=== PATIENT | male | born 1950 | race Caucasian/White ===

== ENCOUNTER 2019-03-08 05:30 | Inpatient (IN) ==
--- NOTE | 2019-02-10 08:45 | History & Physical Report ---
Date of Service February 10, 2019 date of surgery: 03-08-19 Assessment & Plan (1) Tricompartment osteoarthritis of right knee: Risks and benefits of procedure discussed in detail today, patient would like to proceed with a Right total knee replacement at [facility] as scheduled. will obtain medical clearance from Dr Braun prior to surgery as well as cardiac clearance from Dr Kirby, as well as obtain PATs at [facility]. Will resume his Xarelto post op, f/u 2 weeks post op for routine post- operative care and x-ray, sooner if having any problems. will make arrangements for HHPT at the time of discharge. At this point in time, has failed conservative measures and would like to proceed with surgical intervention. History of Present Illness Chief Complaint: right knee pain Primary Care Provider: Rohan Kirby MD Mr Gongora is a 68 year old male who complains of Right knee pain, presents for pre-op eval prior to a right total knee replacement at [facility], He complains of pain, crepitus, decreased motion in his right knee. He states that the symptoms have been chronic non-traumatic. his pain has gradually worsened over the years. Currently the patient states that the symptoms are moderate and is described as aching, sharp and throbbing. The symptoms occur with activity and are aggravated by ascending stairs, daily activities, exercise, walking and repetitive activities. Levon states that the symptoms are relieved by no specific activity. In addition to knee pain, he is also experiencing crepitus, decreased mobility, joint pain, limping, loss of motion, pain after activity and stiffness. Prior NSAIDs include Advil and Ibuprofen. Prior pain medications include Tylenol. Pt. is on Xarelto for A-Fib which limits his current NSAID use. He has had previous PT, has a knee brace he wears as needed. Pt. reports having Right knee surgery by Dr. Mckeon in [place] in 1974 but he is unsure of the exact procedure. Allergies Allergy/AdvReac Type Severity Reaction Status Date / Time adhesive tape Allergy Unknown REDNESS Verified 02/01/19 10:58 codeine Allergy Unknown THROAT Verified 02/01/19 10:58 TIGHTNESS cyclobenzaprine Allergy Unknown PT CAN'T Verified 02/01/19 10:58 [From Flexeril] REMEMBER gatifloxacin [From Tequin] Allergy Unknown ITCHINESS Verified 02/01/19 10:58 Home Medications Home Medications Medication Instructions Recorded Confirmed Type B-complex with vitamin C [Super B 1 tab PO DAILY 02/01/19 02/01/19 History Complex-Vitamin C] amlodipine 2.5 mg PO HS 02/01/19 02/01/19 History ascorbic acid (vitamin C) [Vitamin 500 mg PO DAILY 02/01/19 02/01/19 History C] benzonatate 100 mg PO UD PRN 02/01/19 02/01/19 History cholecalciferol (vitamin D3) 5,000 unit PO DAILY 02/01/19 02/01/19 History [Vitamin D3] irbesartan-hydrochlorothiazide 2 tab PO QAM 02/01/19 02/01/19 History loratadine 10 mg PO DAILY 02/01/19 02/01/19 History pantoprazole 40 mg PO QAM 02/01/19 02/01/19 History polyethylene glycol 3350 [Miralax] 17 g PO DAILY 02/01/19 02/01/19 History potassium 45 mg PO QPM 02/01/19 02/01/19 History rivaroxaban [Xarelto] 20 mg PO QPM 02/01/19 02/01/19 History terazosin 5 mg PO BID 02/01/19 02/01/19 History Past Med/Surg History Medical History Afib DX spring, NO CARDIOVERSION Bulging disc NECK - DENIES LIMITED ROM Chest tightness ONGOING SYMPTOMS: TINGLING SENSATION, CHEST TIGHTNESS - L SIDE - CARDIO AWARE PT REPORTS BELIEVES THESE SYMPTOMS MUSCLE RELATED Diverticulosis Fibromyalgia High blood pressure History of basal cell carcinoma & REMOVED History of constipation Osteoarthritis Polymyalgia rheumatica HX OF Sleep apnea BIPAP Surgical History History of appendectomy History of back surgery X2, LOWER BACK - "CLEANED OUT" History of cardiac cath X2 2010 - HIGH BLOOD PRESSURE, WOULDN'T COME DOWN...DR LAUREN GOMEZ, NO FINDINGS 2014 - TX FOR HIGH BLOOD PRESSURE, IRREGULAR EKG...[facility], NO FINDINGS History of cardiac radiofrequency ablation FOR AFIB, SEPTEMBER 25, 2018 [facility] History of carpal tunnel surgery of left wrist History of carpal tunnel surgery of right wrist History of cholecystectomy History of colonoscopy History of foot surgery L/PLANTAR FASCIATIS History of hernia repair R History of hernia surgery L History of right knee surgery History of shoulder surgery R History of surgery on right wrist History of temporal artery biopsy History of tonsillectomy Status post myelogram HX OF MYELOGRAM,1987 Family History Brother Family history of colon cancer Brother Family history of diabetes mellitus Mother Family history of Alzheimer's disease Other Family history of heart disease Social History Preferred Language: Estonian Communication Ability: Effective Blogs Manager Required: No Beliefs That Will Affect Care: Orthodoxy Orthodoxy Beliefs: ROMAN CATHOLIC Current Living Situation: Spouse and Other Current Living Situation Comment: [facility] Other Information That Helps Us Care for You: No Feels Safe at Home: Yes Smoking Status: Never smoker Do You Dip or Chew Tobacco: No ; Hx Alcohol Use: Yes Alcohol type: beer Hx Substance Use: No Review of Systems Review of Systems: All systems reviewed & are unremarkable except as noted in HPI & below Constitutional: no fever, no chills and no sweats Respiratory: no cough and no dyspnea Cardiovascular: no chest pain, no dyspnea and no orthopnea Gastrointestinal: no abdominal pain, no nausea and no vomiting Musculoskeletal: as per Subjective / HPI Physical Exam Physical Exam: Ht: 5ft 9in Wt: 104kg BP: 128/72 Constitutional: WD/WN, vitals as above no acute distress Respiratory: normal respiratory effort, lungs clear to auscultation no respiratory distress, no labored breathing and does not use accessory muscles Cardiovascular: RRR, no murmur, no edema Gastrointestinal (Abdomen): normal bowel sounds, soft, nontender, no hepatosplenomegaly Musculoskeletal: Knee: + knee abnormal to inspection (RIGHT KNEE), + effusion (+1 effusion), + surgical incision (well healed portals), + limited ROM of knee (ROM 0/3/110), + knee ROM with crepitation, + joint line tenderness (medial joint line) and + Minor's sign positive; no deformity, no skin erythema, no ecchymosis, no valgus laxity, no varus laxity, anterior drawer test negative, Radhames's sign negative and pivot shift test negative Results & Data Diagnostic Findings Right Knee X-ray reviewed from 12-27-18 showing advanced degenerative changes to the right knee, narrowing of the medial compartment with complete loss of joint space, patello-femoral joint with patellar spurring noted, findings showing joint space narrowing of the medial compartment and patello-femoral joint, osteophyte formation and subchondral sclerosis noted. overall varus alignment. no acute bony pathology noted.
--- NOTE | 2019-02-10 13:09 | Anesthesiology Consultation ---
Date of Service February 10, 2019 Assessment & Plan (1) Encounter for pre-operative examination: - Awaiting review preop testing (labs, EKG, CXR). - Awaiting surgeon ordered cardiology/electrophysiology preop evaluation (Dr. Rohan Donis; [facility]). - Xarelto instructions: patient made aware that in order for spinal anesthesia, Xarelto needs to be held 72 hours/3 days prior to surgery. Patient voiced understanding/will check if okay with prescriber. Chart Review Chart Review: Patient seen in Pre Admission Testing Teaching & Discussion Pre-Anesthesia Teaching/Discussion Notes: Instructed NPO after midnight before surgery,except medications with 15 cc of water. Medication instructions provide d according to the PAT guidelines. History Surgery Operation Date: 03/08/19 08:20 Proposed Procedures p Right Total Knee Arthroplasty - Ketan Hood DO Height/Weight Height: 5 ft 9 in Weight: 105.2 kg Allergies Allergy/AdvReac Type Severity Reaction Status Date / Time adhesive tape Allergy Unknown REDNESS Verified 02/01/19 10:58 codeine Allergy Unknown THROAT Verified 02/01/19 10:58 TIGHTNESS cyclobenzaprine Allergy Unknown UNKNOWN Verified 02/10/19 13:15 [From Flexeril] REACTION gatifloxacin [From Tequin] Allergy Unknown PRURITUS Verified 02/10/19 13:15 Medications Home Medications Medication Instructions Recorded Confirmed Last Taken B-complex with vitamin C [Super B 1 tab PO DAILY 02/01/19 02/01/19 Unknown Complex-Vitamin C] amlodipine 2.5 mg PO HS 02/01/19 02/01/19 Unknown ascorbic acid (vitamin C) [Vitamin 500 mg PO DAILY 02/01/19 02/01/19 Unknown C] benzonatate 100 mg PO UD PRN 02/01/19 02/01/19 Unknown cholecalciferol (vitamin D3) 5,000 unit PO DAILY 02/01/19 02/01/19 Unknown [Vitamin D3] irbesartan-hydrochlorothiazide 2 tab PO QAM 02/01/19 02/01/19 Unknown loratadine 10 mg PO DAILY 02/01/19 02/01/19 Unknown pantoprazole 40 mg PO QAM 02/01/19 02/01/19 Unknown polyethylene glycol 3350 [Miralax] 17 g PO DAILY 02/01/19 02/01/19 Unknown potassium 45 mg PO QPM 02/01/19 02/01/19 Unknown rivaroxaban [Xarelto] 20 mg PO QPM 02/01/19 02/01/19 Unknown terazosin 5 mg PO BID 02/01/19 02/01/19 Unknown Past Medical History Medical History Afib Bulging disc cervical CAD (coronary artery disease) non-obstructive Diverticulosis Fibromyalgia High blood pressure History of basal cell carcinoma s/p excision LBBB (left bundle branch block) hx bradycardia with incomplete LBBB raising concern for SSS (per cardiology records- patient subsequently saw electrophysiology; awaiting office visit note) Obesity Osteoarthritis Polymyalgia rheumatica Sleep apnea BIPAP Exercise / Class Metabolic Activity II 4-5 Yardwork/Stairs/Walk up hill Past Family History Family History Brother Family history of colon cancer Brother Family history of diabetes mellitus Mother Family history of Alzheimer's disease Other Family history of heart disease Past Surgical History Surgical History History of appendectomy History of back surgery LUMBAR X2 History of cardiac cath 2010, 2014= NO STENTS History of cardiac radiofrequency ablation for a. fib (08/2018) History of carpal tunnel surgery of left wrist History of carpal tunnel surgery of right wrist History of cholecystectomy History of colonoscopy History of foot surgery LEFT/PLANTAR FASCIATIS History of hernia repair R History of hernia surgery LEFT History of right knee surgery History of shoulder surgery RIGHT History of surgery on right wrist History of temporal artery biopsy History of tonsillectomy Past Anesthesia History No Hx of Anesthesia Complications and No Family Hx of Anesthesia Complications History of PONV No Hx of PONV and No Hx of Motion Sickness Social History Smoking Status: Never smoker Do You Dip or Chew Tobacco: No Hx Alcohol Use: Yes Alcohol type: beer alcohol intake frequency: a few times a week (at most) Hx Substance Use: No substance use type: does not use Review of Systems Non-productive cough s/p antibiotics/prednisone (now on z-evaristo). Patient denies chest pain, shortness of breath, dyspnea on exertion, reflux, cough, wheezing, palpitations. Physical Exam Vital Signs VITALS BP 145/76 P 59 TEMP 98.1 SP02 95%RA RESP 20 PHYSICAL Full neck and c-spine range of motion. Full TMJ range of motion. TMD 3 finger breaths Mallampati Score 3 Dentition: intact, upper front ?implants vs. crowns Lungs: clear throughout to auscultation Cardiac: regular rate and rhythm, no murmurs noted Spine: normal Carotid arteries: negative bruit Extremities: no edema Testing Echocardiogram Date: 09/12/18 LVEF 55-74%. Mild LAD. No RWMA. Grade I DD. No significant valvular disease.
--- NOTE | 2019-02-10 13:26 | PAT Medication Instructions ---
Medication Instructions Date of Service February 10, 2019 Home Medications B-complex with vitamin C [Super B Complex-Vitamin C] 1 tab PO DAILY amlodipine 2.5 mg PO HS ascorbic acid (vitamin C) [Vitamin C] 500 mg PO DAILY benzonatate 100 mg PO UD PRN cholecalciferol (vitamin D3) [Vitamin D3] 5,000 unit PO DAILY irbesartan-hydrochlorothiazide 2 tab PO QAM loratadine 10 mg PO DAILY pantoprazole 40 mg PO QAM polyethylene glycol 3350 [Miralax] 17 g PO DAILY potassium 45 mg PO QPM rivaroxaban [Xarelto] 20 mg PO QPM terazosin 5 mg PO BID ASK your prescriber and surgeon rivaroxaban [Xarelto] 20 mg PO QPM (In order for spinal anesthesia, Xarelto/Rivaroxaban needs to be stopped 72 hours/3 days prior to surgery. Please check with prescribing doctor if this is okay) DO NOT take the morning of surgery B-complex with vitamin C [Super B Complex-Vitamin C] 1 tab PO DAILY ascorbic acid (vitamin C) [Vitamin C] 500 mg PO DAILY benzonatate 100 mg PO UD PRN cholecalciferol (vitamin D3) [Vitamin D3] 5,000 unit PO DAILY irbesartan-hydrochlorothiazide 2 tab PO QAM loratadine 10 mg PO DAILY polyethylene glycol 3350 [Miralax] 17 g PO DAILY Take morning of surgery With a small sip of water, OTHERWISE NOTHING TO EAT OR DRINK AFTER MIDNIGHT: pantoprazole 40 mg PO QAM terazosin 5 mg PO BID Take evening before surgery amlodipine 2.5 mg PO HS benzonatate 100 mg PO UD PRN (if needed) potassium 45 mg PO QPM terazosin 5 mg PO BID Other Notes If you have any questions please call us at [phone] or [phone] or [phone] or [phone]
--- NOTE | 2019-02-10 14:00 | XRay Report ---
TWO VIEW CHEST CLINICAL HISTORY: Preoperative examination. FINDINGS: PA and lateral chest radiographs are obtained. No prior studies are available for compariso n at the time of dictation. The heart is top normal for projection noting atherosclerotic calcifica tion of the thoracic aorta. The lungs and pleural spaces are clear. There is no pneumothorax. The sk eletal structures are osteopenic. Degenerative change is noted in the thoracic spine. The bony thorax appears intact. Surgical clips are seen in the upper abdomen. IMPRESSION: No active disease in the chest. Electronically signed by: Yves Tucker M.D. 02/10/2019 1:58 PM
[2019-02-10 14:17] LABS: INR 1.1 (0.9-1.1); Partial Thromboplastin Ratio 1.1; Partial Thromboplastin Time 29.6 Seconds (21.0-31.0); Prothrombin Time 10.9 Seconds (9.0-12.0)
[2019-02-10 14:32] LABS: Albumin Level 3.9 gm/dl (3.4-5.0); BUN Creatinine Ratio 18.4 (10-20); Calcium 9.6 mg/dl (8.5-10.1); Creatinine Clr Calc Pharmacy 87.7 ml/min; Est GFR (African American) 94.3; Est GFR (Non-African American) 81.3; Potassium 3.9 mmol/L (3.5-5.1)
[2019-02-10 14:38] LABS: Appearance Urine Clear (Clear); Bilirubin Urine Negative (Negative); Blood Urine Negative (Negative); Color Urine Yellow; Glucose Urine UA Negative (Negative); Ketones Urine Negative (Negative); Leukocyte Esterase Urine Negative (Negative); Nitrite Urine Negative (Negative); Protein Urine Negative (Negative); Specific Gravity Urine 1.012 (1.000-1.030); Urobilinogen Urine Negative (Negative); pH Urine 6.5 (4.5-7.5)
[2019-02-10 14:58] LABS: Basophils # (auto) 0.03 K/uL (0-0.2); Basophils % (auto) 0.4 %; Eosinophils # (auto) 0.21 K/uL (0-0.5); Eosinophils % (auto) 2.5 %; Hematocrit (blood only) 43.7 % (42-52); Hemoglobin 15.5 g/dL (14.0-18.0); Immature Granulocytes # (auto) 0.04 K/uL (0.00-0.02); Immature Granulocytes % (auto) 0.5 %; Lymphocytes # (auto) 1.86 K/uL (1.2-3.4); Lymphocytes % (auto) 22.6 %; Mean Corpuscular Hemoglobin 31.8 pg (25-34); Mean Corpuscular Hgb Conc 35.5 g/dL (32-36); Mean Corpuscular Volume 89.5 fL (80-100); Mean Platelet Volume 10.2 fL (7.4-10.4); Monocytes # (auto) 0.85 K/uL (0.11-0.59); Monocytes % (auto) 10.3 %; Neutrophils # (auto) 5.25 K/uL (1.4-6.5); Neutrophils % (auto) 63.7 %; Platelet Count 231 K/uL (130-400); RDW Coefficient of Variation 13.3 % (11.5-14.5); RDW Standard Deviation 43.2 fL (36.4-46.3); Red Blood Count 4.88 M/uL (4.7-6.1); White Blood Count 8.24 K/uL (4.8-10.8)
[2019-02-11 05:55] LABS: Estimated Average Glucose 123 mg/dl; Hemoglobin A1C 5.9 % (4.5-5.6)
[2019-03-08] MEDS ORDERED: LR 500ML BOLUS, THEN 15ML/HR IV SCH (06:00)
[2019-03-08] MEDS ORDERED: FAMOTIDINE 20 MG TAB PO SCH (06:00)
[2019-03-08] MEDS ORDERED: ROPIVACAINE 0.5% HCL/PF 150 MG, BUPIVACAINE 0.5% MPF 30 ML, EPINEPHrine 30MG/30ML (OR U... INSTIL SCH (06:00)
[2019-03-08] MEDS ORDERED: ACETAMINOPHEN 500 MG TAB PO SCH (06:00)
[2019-03-08] MEDS ORDERED: GABAPENTIN 300 MG CAP PO SCH (06:00)
[2019-03-08] MEDS ORDERED: TRANEXAMIC ACID 1,000 MG **IV Pre-op IV SCH (06:00)
[2019-03-08] MEDS ORDERED: CEFAZOLIN 2000MG 2,000 MG/15 ML SYR IV SCH (06:00)
[2019-03-08] MEDS ORDERED: dexAMETHasone 4 MG TAB PO SCH (06:00)
[2019-03-08] MEDS ORDERED: CeleBREX 200 MG CAP PO SCH (06:00)
[2019-03-08] MEDS ORDERED: METOCLOPRAMIDE HCL 10 MG TABLET PO SCH (06:00)
[2019-03-08] MEDS ORDERED: ROPIVACAINE 0.5% 5 MG/ML 30 ML VIAL ONE (06:25)
[2019-03-08] MEDS ORDERED: BUPIVACAINE 0.5 % 5 MG/1 ML PF 10ML VIAL ONE (06:25)
[2019-03-08] MEDS ORDERED: TRANEXAMIC ACID 1,000 MG **IV Intra-op IV SCH (06:30)
[2019-03-08] MEDS ORDERED: PROPOFOL IV EMULSION 10 MG/ML 20 ML VIAL IV ONE (06:56)
[2019-03-08] MEDS ORDERED: MIDAZOLAM HCL 1 MG/ML 2ML VIAL ONE ×2 (06:56)
[2019-03-08] MEDS ORDERED: LIDOCAINE HCL 2% 2 ML VIAL/AMP(20MG/ML) INFIL ONE (06:56)
[2019-03-08] MEDS ORDERED: fentaNYL citrate 100 MCG/2 ML VIAL ONE (06:56)
--- NOTE | 2019-03-08 07:14 | History & Physical Bridge Note ---
Date of Service March 08, 2019 History & Physical Bridge Note I have examined the patient, reviewed the History & Physical and in the interval since the performance of the History & Physical I have noted the following changes of clinical significance: no changes noted
[2019-03-08] MEDS ORDERED: ORTHO JOINT ANESTHETIC ONE (07:20)
[2019-03-08] MEDS ORDERED: BACITRACIN INJ 50,000 UNIT VIAL ONE (07:20)
--- NOTE | 2019-03-08 09:38 | Operative Report ---
Post Operative Report Pre & Post Diagnosis Operation Date: 03/08/19 08:20 Pre-Op Diagnosis: Unilateral Primary Osteoarthritis of Right Knee Post-Op Diagnosis: Unilateral Primary Osteoarthritis of Right Knee I identified the patient and participated in the time-out.: Yes Procedure Operation Date: 03/08/19 08:20 Actual Procedures p Right Total Knee Arthroplasty(Right) Martines & Nephew mercedes 2 patient matched total knee arthroplasty size 7 femur 6 tibia 10 polyethylene 35 oval patella- Ketan Hood DO Surgeon Ketan Hood DO Candy Wrapping Machine Operator Jeet HANNON Estimated Blood Loss 5 Findings Consistent with Post-Op Diagnosis Patient presents with severe end-stage tricompartmental degenerative joint disease right knee with varus alignment subchondral cystic changes marginal osteophytes [id number] eburnation a large effusion no response to conservative management Specimens Bone cartilage Drains Medium bore Hemovac Complications none Disposition Accompanied Patient To Recovery: No Disposition: Recovery Room Indications Patient presents as a 68-year-old white male with a ongoing planes of pain but his right knee is been no response to conservative management he has failed attempts at the corticosteroid injections Visco supplementations relative rest activity modifications bracing presents with above intraoperative findings for total knee arthroplasty Description of Procedure After the patient was properly identifiedAfter proper prepping and draping of the Right lower extremity anterior midline incision was made over the region of the extensor extensor mechanism after meticulous hemostasis was obtained and maintained in subcutaneous tissues a medial parapatellar incision was made The patella was subluxed lateralward the medial lateral gutter were cleaned from any hypertrophic synovitis and scar tissue of the distal femoral block was placed and the distal femoral osteotomy cut was made subsequently the chamfers anterior and posterior osteotomy cuts were made utilizing the 4-in-1 block the tibia was subsequently subluxed anteriorward medial and ateral meniscal remnants were excised in their entirety remnants of the anterior and posterior cruciate ligaments were excised in their entirety excellent exposure of the proximal tibia was obtained the tibial osteotomy guide was placed on the proximal tibial osteotomy cut was made once again the knee was irrigated with copious amounts of sterile saline solution the patella was subsequently everted lateralward thickened scar tissue around the patella was removed the patella was subsequently cut utilizing a freehand technique and was drilled prepared for final preparation and placement of patella socially flexion-extension gaps were checked and the equal and symmetric trials were placed to the appropriate femoral and tibial trials with poly-spacer being placed for equal flexion and extension gaps and full range of motion including extension to 0 and flexion to 140 the trial components after having been taken to recovery range of motion was subsequently removed meticulous hemostasis was obtained and maintained sub sequently a knee block injection of joint cocktail including ropivacaine 0.5% 150 mg. Bupivacaine 0.5% epinephrine 1-200,030 mL's toradol 30 mg dexamethasone 4 mg ketamine 10 mg clonidine 100 micrograms normal saline solution 30 mg was infiltrated into the soft tissues of the posterior knee medial lateral gutters and periosteal synovium special attention was paid to protect neurovascular structures at all times subsequently trial components having been removed the knee was irrigated with sterile saline solution. debris was removed the proximal tibia was subsequently prepared and was made ready for the placement of the tibial component tibial component was also cemented and tamped into position the femoral component was subsequently placed and cemented in the position the patellar component was subsequently cemented in position because hemostasis once again obtained and maintained wound having been thoroughly irrigated with debridement and debridement lavage was performed as well as a medial parapatellar incision closed with #1 Vicryl in interrupted fashion subcutaneous was closed with #2 Vicryl skin was closed with skin clips. PA-C was necessary for prepping and drapping as well as wound closure of deep fascia Sub cutaneous tissue and skin and was necessary for the case. A sterile compressive dressing was placed patient was taken to recovery in stable condition of report dictated by Erwin I attest to the content of the Intraoperative Record and any orders documented therein. Any exceptions are noted below. I attest to the content of the Intraoperative Record and any orders documented therein. Any exceptions are noted below.
[2019-03-08] MEDS ORDERED: GLYCOPYRROLATE 0.2 MG/ML VIAL ONE (10:31)
--- NOTE | 2019-03-08 11:05 | XRay Report ---
XR knee RT 1 or 2V routine CLINICAL HISTORY: Surgical Post Op COMPARISON: None. DISCUSSION: There are postsurgical changes of a total right knee arthroplasty. The femoral tibial com ponents appear well seated. Overlying surgical drains are evident. There is gas within the soft tissu es consistent with history of recent surgery. IMPRESSION: Postsurgical changes of a total right knee arthroplasty. Electronically signed by: Isaac De Luna M.D. 03/08/2019 11:04 AM
--- NOTE | 2019-03-08 11:16 | Anesthesiology Progress Note ---
Date of Service March 08, 2019 Anesthesia Post Procedure Vital Signs Vital Signs: Temp Pulse Pulse Resp BP Pulse Ox 03/08/19 11:00 36.2 C L 59 L 22 146/78 H 94 03/08/19 10:50 61 14 139/94 97 03/08/19 10:40 62 14 127/74 96 03/08/19 10:30 63 19 130/68 99 03/08/19 10:22 36.6 C 67 15 116/63 97 03/08/19 06:35 36 C L 90 15 189/83 H 95 Transfer of Care Handoff Completed per policy Notes Mental Status: alert / awake / arousable and participated in evaluation Patient Amnestic to Procedure: Yes Nausea / Vomiting: adequately controlled Pain: adequately controlled Airway Patency, RR, SpO2: stable & adequate BP & HR: stable & adequate Hydration State: stable & adequate Neuraxial Anesthesia: was administered and sensory block is resolving Anesthetic Complications: no major complications apparent
[2019-03-08] MEDS ORDERED: HYDROmorphone INJ 1 MG/ML SYRINGE IV PRN (11:18)
[2019-03-08] MEDS ORDERED: MAGNESIUM HYDROXIDE SUSP 30 ML UDC PO PRN (11:18)
[2019-03-08] MEDS ORDERED: ONDANSETRON INJ 2 MG/ML 2 ML VIAL IV PRN (11:18)
[2019-03-08] MEDS ORDERED: bisacodyL 10 MG SUPP PR PRN (11:18)
[2019-03-08] MEDS ORDERED: NALOXONE HCL 0.4 MG/1 ML VIAL/CARP IV PRN (11:18)
[2019-03-08] MEDS ORDERED: METOCLOPRAMIDE HCL INJ 5 MG/ML 2 ML VIAL IV PRN (11:18)
[2019-03-08] MEDS: OXYCODONE HCL IR 5 MG TAB (IMMEDIATE RELEASE) PO PRN (13:05)
[2019-03-08] MEDS: ACETAMINOPHEN 500 MG TAB PO SCH ×2 (14:27→21:40)
[2019-03-08] MEDS: SODIUM CHLORIDE 0.9% 1000ML 1,000 ML IV SCH (14:27)
[2019-03-08] MEDS: CEFAZOLIN 2000MG 2,000 MG/15 ML SYR IV SCH (17:23)
[2019-03-08] MEDS: DOCUSATE SODIUM 100 MG CAP PO SCH (20:25)
[2019-03-08] MEDS: TERAZOSIN HCL 5 MG CAP PO SCH (20:25)
[2019-03-08] MEDS ORDERED: AMLODIPINE BESYLATE 5 MG TAB PO SCH (21:00)
[2019-03-08] MEDS ORDERED: SENNA 8.6 MG TAB PO SCH (21:00)
[2019-03-08] MEDS ORDERED: RIVAROXABAN 20 MG TAB PO SCH (21:00)
[2019-03-08] MEDS ORDERED: POTASSIUM PO SCH (21:00)
[2019-03-09] MEDS: CEFAZOLIN 2000MG 2,000 MG/15 ML SYR IV SCH (00:24)
[2019-03-09] MEDS: SODIUM CHLORIDE 0.9% 1000ML 1,000 ML IV SCH (00:40)
[2019-03-09] MEDS ORDERED: POLYETHYLENE (MIRALAX) 17 GM PACK PO SCH ×2 (06:00→09:00)
[2019-03-09] MEDS: ACETAMINOPHEN 500 MG TAB PO SCH (06:01)
[2019-03-09 06:04] LABS: Hematocrit (blood only) 36.2 % (42-52); Hemoglobin 12.7 g/dL (14.0-18.0); Mean Corpuscular Hemoglobin 31.7 pg (25-34); Mean Corpuscular Hgb Conc 35.1 g/dL (32-36); Mean Corpuscular Volume 90.3 fL (80-100); Platelet Count 211 K/uL (130-400); RDW Standard Deviation 43.1 fL (36.4-46.3); Red Blood Count 4.01 M/uL (4.7-6.1); White Blood Count 11.52 K/uL (4.8-10.8)
[2019-03-09 06:41] LABS: BUN Creatinine Ratio 13.9 (10-20); Calcium 8.9 mg/dl (8.5-10.1); Creatinine Clr Calc Pharmacy 84.3 ml/min; Est GFR (African American) 88.6; Est GFR (Non-African American) 76.5
--- NOTE | 2019-03-09 07:17 | Orthopedic Progress Note ---
Date of Service March 09, 2019 Assessment & Plan (1) Status post total right knee replacement: POD #1 s/p Right TKA pt/ot dvt proph with [facility]/SCD/ASA plan for d/c home with HHPT after PT today Subjective POD #1 s/p Right TKA Review of Systems Constitutional: no fever, no chills and no sweats Respiratory: no cough and no dyspnea Cardiovascular: no chest pain and no dyspnea Gastrointestinal: no abdominal pain, no nausea and no vomiting Physical Exam Physical Exam: Vital Signs Temp 36.4 C L 03/09/19 03:47 Pulse 58 L 03/09/19 03:47 Resp 16 03/09/19 03:47 BP 157/73 H 03/09/19 03:47 Pulse Ox 95 03/09/19 03:47 Intake & Output 03/08/19 03/09/19 03/09/19 18:59 06:59 18:59 Intake Total 1910 / 3210 1300 / 3210 Output Total 815 / 3140 2325 / 3140 Balance 1095 / 70 -1025 / 70 Weight 107.683 kg Intake: IV 920 / 1920 1000 / 1920 Lr 1,000 ml @ 15 mls/hr IV . 700 / 700 Q24H MOLLY Rx#:[id number] Nss 1000ML 1,0 00 ml @ 100 mls/ 1000 / 1000 hr IV .Q10H SC H Rx#:[id number] Cyklokapron 1, 000 mg In Sodium 220 / 220 Chloride 100 m l @ 660 mls/hr IV 0630 MOLLY Rx#:[id number] IV Perioperative 750 / 750 Oral 240 / 540 300 / 540 Output: Urine 800 / 2875 2075 / 2875 Estimated Blood Loss 5 / 5 Drain Output 260 250 / 260 Right Knee Hem ovac 10 / 260 250 / 260 Constitutional: WD/WN, vitals as above no acute distress Musculoskeletal: Right Leg: NVDI, calf SNT, negative rock sign. DP palpable, able to wiggle toes/ankle movement without difficulty. dressing clean dry and intact. Results & Data Vital Signs (Past 12 Hours) Vital Signs Temp Pulse Pulse Resp BP Pulse Ox 03/09/19 03:47 36.4 C L 58 L 16 157/73 H 95 03/09/19 00:14 36.7 C 57 L 16 148/67 H 94 03/08/19 20:19 36.7 C 66 17 134/58 L 94 Laboratory Results Laboratory Results WBC 11.52 K/uL (4.8-10.8) H 03/09/19 05:07 RBC 4.01 M/uL (4.7-6.1) L 03/09/19 05:07 Hgb 12.7 g/dL (14.0-18.0) L 03/09/19 05:07 Hct 36.2 % (42-52) L 03/09/19 05:07 MCV 90.3 fL (80-100) 03/09/19 05:07 MCH 31.7 pg (25-34) 03/09/19 05:07 MCHC 35.1 g/dL (32-36) 03/09/19 05:07 RDW Std Deviation 43.1 fL (36.4-46.3) 03/09/19 05:07 RDW Coeff of Marcie 13.0 % (11.5-14.5) 03/09/19 05:07 Plt Count 211 K/uL (130-400) 03/09/19 05:07 MPV 10.0 fL (7.4-10.4) 03/09/19 05:07 Immature Gran % (Auto) 0.5 % 02/10/19 13:30 Neut % (Auto) 63.7 % 02/10/19 13:30 Lymph % (Auto) 22.6 % 02/10/19 13:30 [place] % (Auto) 10.3 % 02/10/19 13:30 Eos % (Auto) 2.5 % 02/10/19 13:30 Baso % (Auto) 0.4 % 02/10/19 13:30 Immature Gran # (Auto) 0.04 K/uL (0.00-0.02) H 02/10/19 13:30 Neut # (Auto) 5.25 K/uL (1.4-6.5) 02/10/19 13:30 Lymph # (Auto) 1.86 K/uL (1.2-3.4) 02/10/19 13:30 [place] # (Auto) 0.85 K/uL (0.11-0.59) H 02/10/19 13:30 Eos # (Auto) 0.21 K/uL (0-0.5) 02/10/19 13:30 Baso # (Auto) 0.03 K/uL (0-0.2) 02/10/19 13:30 PT 10.9 Seconds (9.0-12.0) 02/10/19 13:30 INR 1.1 (0.9-1.1) 02/10/19 13:30 APTT 29.6 Seconds (21.0-31.0) 02/10/19 13:30 PTT Ratio 1.1 02/10/19 13:30 Sodium 140 mmol/L (136-145) 03/09/19 05:07 Potassium 4.0 mmol/L (3.5-5.1) 03/09/19 05:07 Chloride 108 mmol/L (98-107) H 03/09/19 05:07 Carbon Dioxide 26 mmol/L (21-32) 03/09/19 05:07 Anion Gap 6.0 (3-11) 03/09/19 05:07 BUN 14 mg/dl (7-18) 03/09/19 05:07 Creatinine 1.00 mg/dl (0.6-1.4) 03/09/19 05:07 Est Cr Clr Drug Dosing 84.3 ml/min 03/09/19 05:07 Est GFR ( Amer) 88.6 03/09/19 05:07 Est GFR (Non-Af Amer) 76.5 03/09/19 05:07 BUN/Creatinine Ratio 13.9 (10-20) 03/09/19 05:07 Glucose 137 mg/dl (70-99) H 03/09/19 05:07 Estimat Average Glucose 123 mg/dl 02/10/19 13:30 Hemoglobin A1c 5.9 % (4.5-5.6) H 02/10/19 13:30 Calcium 8.9 mg/dl (8.5-10.1) 03/09/19 05:07 Albumin 3.9 gm/dl (3.4-5.0) 02/10/19 13:30 Urine Color Yellow 02/10/19 Unknown Urine Appearance Clear (Clear) 02/10/19 Unknown Urine pH 6.5 (4.5-7.5) 02/10/19 Unknown Ur Specific [place] 1.012 (1.000-1.030) 02/10/19 Unknown Urine Protein Negative (Negative) 02/10/19 Unknown Urine Glucose (UA) Negative (Negative) 02/10/19 Unknown Urine Ketones Negative (Negative) 02/10/19 Unknown Urine Blood Negative (Negative) 02/10/19 Unknown Urine Nitrite Negative (Negative) 02/10/19 Unknown Urine Bilirubin Negative (Negative) 02/10/19 Unknown Urine Urobilinogen Negative (Negative) 02/10/19 Unknown Ur Leukocyte Esterase Negative (Negative) 02/10/19 Unknown Blood Type O Positive 02/10/19 13:30 Antibody Screen NEGATIVE 02/10/19 13:30 Diagnostic Findings XR knee RT 1 or 2V routine CLINICAL HISTORY: Surgical Post Op COMPARISON: None. DISCUSSION: There are postsurgical changes of a total right knee arthroplasty. The femoral tibial components appear well seated. Overlying surgical drains are evident. There is gas within the soft tissues consistent with history of recent surgery. IMPRESSION: Postsurgical changes of a total right knee arthroplasty.
[2019-03-09] MEDS: TERAZOSIN HCL 5 MG CAP PO SCH (08:20)
[2019-03-09] MEDS: DOCUSATE SODIUM 100 MG CAP PO SCH (08:21)
[2019-03-09] MEDS: OXYCODONE HCL IR 5 MG TAB (IMMEDIATE RELEASE) PO PRN (08:37)
[2019-03-09] MEDS ORDERED: CHOLECALCIFEROL 1,000 UNITS TAB PO SCH (09:00)
[2019-03-09] MEDS ORDERED: ASCORBIC ACID 500 MG TAB PO SCH (09:00)
[2019-03-09] MEDS ORDERED: LORATADINE 10 MG TAB PO SCH (09:00)
[2019-03-09] MEDS ORDERED: VITAMIN B COMPLEX TAB PO SCH (09:00)
[2019-03-09] MEDS ORDERED: MULTIVITAMIN TAB PO SCH (09:00)
--- NOTE | 2019-03-09 17:07 | Discharge Summary ---
Date of Service date of discharge: March 09, 2019 date of admission: 03/08/19 Admission HPI Per Admitting Provider Mr Gongora is a 68 year old male who complains of Right knee pain, presents for pre-op eval prior to a right total knee replacement at [facility], He complains of pain, crepitus, decreased motion in his right knee. He states that the symptoms have been chronic non-traumatic. his pain has gradually worsened over the years. Currently the patient states that the symptoms are moderate and is described as aching, sharp and throbbing. The symptoms occur with activity and are aggravated by ascending stairs, daily activities, exercise, walking and repetitive activities. Levon states that the symptoms are relieved by no specific activity. In addition to knee pain, he is also experiencing crepitus, decreased mobility, joint pain, limping, loss of motion, pain after activity and stiffness. Prior NSAIDs include Advil and Ibuprofen. Prior pain medications include Tylenol. Pt. is on Xarelto for A-Fib which limits his current NSAID use. He has had previous PT, has a knee brace he wears as needed. Pt. reports having Right knee surgery by Dr. Mckeon in [place], [place] in 1974 but he is unsure of the exact procedure. Principal Diagnosis right knee osteoarthritis Discharge Exam Vital Signs Temp 36.6 C 03/09/19 09:42 Pulse 60 03/09/19 09:42 Resp 16 03/09/19 09:42 BP 155/73 H 03/09/19 09:42 Pulse Ox 97 03/09/19 09:42 Intake & Output 03/08/19 03/09/19 03/09/19 18:59 06:59 18:59 Intake Total 1910 / 3210 1300 / 3210 Output Total 815 / 3140 2325 / 3140 Balance 1095 / 70 -1025 / 70 Weight 107.683 kg 107.683 kg Intake: IV 920 / 1920 1000 / 1920 Lr 1,000 ml @ 15 mls/hr IV . 700 / 700 Q24H MOLLY Rx#:[id number] Nss 1000ML 1,000 ml @ 100 mls/ 1000 / 1000 hr IV .Q10H MOLLY Rx#:[id number] Cyklokapron 1,000 mg In Sodium 220 / 220 Chloride 100 ml @ 660 mls/hr IV 0630 MOLLY Rx#:[id number] IV Perioperative 750 / 750 Oral 240 / 540 300 / 540 Output: Urine 800 / 2875 2075 / 2875 Estimated Blood Loss 5 / 5 Drain Output 250 / 260 Right Knee Hemovac 250 / 260 Constitutional WD/WN, vitals as above no acute distress Musculoskeletal right knee: NVDI, calf SNT, negative rock sign. DP palpable, able to wiggle toes/ankle movement without difficulty. dressing clean dry and intact. Discharge Data Allergies Allergy/AdvReac Type Severity Reaction Status Date / Time adhesive tape Allergy Unknown REDNESS Verified 03/08/19 06:27 codeine Allergy Unknown THROAT Verified 03/08/19 06:27 TIGHTNESS cyclobenzaprine Allergy Unknown UNKNOWN Verified 03/08/19 06:27 [From Flexeril] REACTION gatifloxacin [From Tequin] Allergy Unknown PRURITUS Verified 03/08/19 06:27 Consultations 03/08/19 11:18 Consult Case Management - Discharge Planning Routine Procedures Performed Operation Date: 03/08/19 08:20 Actual Procedures p Right Total Knee Arthroplasty(Right) - Ketan Hood DO Ordered Studies 03/08/19 05:00 US - OR guided needle placemen Routine Hospital Course (1) Status post total right knee replacement: POD #1 s/p Right TKA pt/ot dvt proph with [facility]/SCD/ASA plan for d/c home with HHPT after PT today Total Time Total Time Spent Total Time Spent (In Minutes): 20 Total Time Includes: Examination of the Patient, Discharge Planning and Medication Reconciliation Discharge Plan Discharge Items Patient Disposition: Home - Home Health Services Reason For Visit: Unilateral Primary Osteoarthritis of Right Knee Discharge Diagnosis: right total knee replacement Condition on Discharge: Good Activity: Per Instructions section Lifting: Wait until after follow-up appointment Weightbearing: Full weightbearing and Right weightbearing Non-emergency contact: Surgeon Call non-emergency contact if: your temperature is above 101, your wound has increased redness, your wound has increased drainage and your wound pain has increased Follow-up/Referrals: Rohan Kirby MD [Primary Care Provider] - Diet: Regular Addtl Attending Provider Instructions: ACTIVITY RECOMMENDATIONS: SELF CARE INSTRUCTIONS AFTER TOTAL KNEE REPLACEMENT A. You may need to continue a physical therapy program after discharge from the hospital. There are several options available to you. Your doctor will assist you in selecting the best one for you. 1. An out-patient facility 2 to 3 times a week for therapy or home therapy. 2. Continue working on all exercises taught to you in the hospital. Your goals should be to increase bending of your knee to 90 degrees and beyond and to fully straighten your knee. B. You may progress at your own pace from walking with a walker or crutches to a cane; then to no assistive devices. C. Make walking a part of your daily routine. Be up as much as comfortable with rest periods throughout the day. Rest with leg elevation is very important. Use the ice wrap frequently for the first 3-4 weeks. D. There are no restrictions on activities. You may ride in a car, shop, parti cipate in household cook and all social activities. E. Wear the long elastic stockings (BECCA hose) 20 hours a day for 2 weeks after surgery. They can be removed several times a day for laundering and for a bath. F. You may shower, no tub baths until cleared by your doctor. SPECIAL CARE INSTRUCTIONS: VERY IMPORTANT TO READ AND REVIEW A. There are a few signs you need to watch for after you are home. Call [facility] if you notice any of the followin. Increased severe knee pain. Some pain is expected especially when you exercise. 2. Increased swelling in your leg or knee; pain or swelling of the calf muscle in either lower leg. 3. Any fluid drainage from the incision. 4. Shortness of breath or chest pain. B. Please call [facility] at if you have any concerns or questions about your operation or recovery. The doctor or his nurse will return your call promptly. C. You must take antibiotics before dental work, bladder, bowel or other surgery. Your doctor will provide you with a permanent care to carry describing th is precaution. IMPORTANT: * REMEMBER TO TAKE ASPIRIN, 81 MG, TWICE DAILY FOR 4 WEEKS UNLESS OTHERWISE DIRECTED. THIS IS YOUR BLOOD THINNER. * HIGH RISK PATIENTS MAY BE PRESCRIBED A STRONGER BLOOD THINNER. THIS WILL BE PROVIDED AT DISCHARGE. * CALL IF INCREASED PAIN, REDNESS, DRAINAGE OR FEVER GREATER THAT 101. * WEAR BECCA HOSE 20 HOURS PER DAY FOR 2 WEEKS. * DERMABOND Prineo- This is a mesh tape dressing that is covered with glue. It should remain in place until the incision is properly healed, usually 10-14 days. This dressing is designed to naturally slough off. You may trim the excess mesh tape as it peels off. Incision may be briefly wet in a shower. Dry immediately by blotting with a clean, dry towel. Do not bath or swim until instructed by your doctor. Do not scratch, rub, or pick at the dressing. Do not apply any topical ointments or lotions until dressing is completely removed and/or instructed by your doctor. There may be a small piece of suture material at one end of your incision. Do not pull or trim this. If it is bothersome or catching on clothing, you may cover it with a band-aid. IF INCISION IS LEAKING THROUGH DRESSING, CALL THE OFFICE . FOLLOW UP VISIT: If appointment is not already scheduled: Please call [facility] to make a follow-up appointment for 2 weeks after your surgery at . Pending Studies at Discharge: No Stand-Alone Forms: [facility], Opioid Pain Management, Smoking Cessation Medications and DC Order Prescriptions: New acetaminophen [Tylenol Extra Strength] 500 mg Tablet 1,000 mg PO Q8 14 Days Qty: 84 RF: 0 oxycodone 5 mg Tablet 5 - 10 mg PO Q6H PRN (Reason: pain) Qty: 30 RF: 0 docusate sodium 100 mg Capsule 100 mg PO BID 10 Days Qty: 20 RF: 0 cefadroxil 500 mg capsule 500 mg PO BID 10 Days Qty: 20 RF: 0 Continued terazosin 5 mg Capsule 5 mg PO BID RF: 0 irbesartan-hydrochlorothiazide 150-12.5 mg Tablet 2 tab PO QAM RF: 0 benzonatate 100 mg Capsule 100 mg PO UD PRN (Reason: Cough) RF: 0 pantoprazole 40 mg Tablet,Delayed Release (Dr/Ec) 40 mg PO QAM RF: 0 loratadine 10 mg Capsule 10 mg PO DAILY RF: 0 amlodipine 2.5 mg Tablet 2.5 mg PO HS RF: 0 potassium 99 mg Tablet 45 mg PO QPM RF: 0 ascorbic acid (vitamin C) [Vitamin C] 500 mg Tablet 500 mg PO DAILY RF: 0 B-complex with vitamin C [Super B Complex-Vitamin C] Tablet 1 tab PO DAILY RF: 0 cholecalciferol (vitamin D3) [Vitamin D3] 5,000 unit Tablet 5,000 unit PO DAILY RF: 0 Xarelto 20 mg Tablet 20 mg PO QPM RF: 0 polyethylene glycol 3350 [Miralax] 17 gram Powder In Packet 17 g PO DAILY RF: 0 Discharge Orders: Discharge Order (Routine); Ordered 03/09/19 Ordered By: Jeet Lebron/Other Patient Handouts: Surgery Prevent DVT After Admission Data Admit Date/Time: 03/08/19 10:29 Attending Provider: Ketan Hood Admit Provider: Ketan Hood Primary Care Provider: Rohan Kirby Other Interventions: Discharge Summary Assessment (RN) Last Done: 03/09/19 09:42 DC Date/Time DO NOT enter until pt leaves facility: 03/09/19 12:40
== END 2019-03-09 12:40 | disposition home health service (06) | DRG 470 ==
LOC: ASU 05:30 → 3E 10:29